=== PATIENT | female | born 1940 | race Caucasian/White ===

== ENCOUNTER 2016-12-19 12:44 | Emergency (ER) | payer MEDICARE, BC | END 2016-12-19 14:00 | disposition home or self-care (01) | LOC: ER1 12:44 | DX: M54.32 Sciatica, left side (principal); I10 Essential (primary) hypertension; Z79.82 Long term (current) use of aspirin; Z79.899 Other long term (current) drug therapy | CPT/HCPCS: 96372; 99283; J1100; J1885 ==